=== PATIENT | female | born 1950 | race African-American/Black ===

== ENCOUNTER 2019-01-22 00:49 | Emergency (ER) | payer OTHER ==
[~2019-01-22] VITALS: Ht 162.6 cm; Wt 95.0 kg
[2019-01-22] MEDS ORDERED: ACETAMINOPHEN 325MG TABLET PO STA (04:12)
[2019-01-22 05:45] VITALS: BP 159/89
== END 2019-01-22 06:05 | disposition home or self-care (01) ==
LOC: ER 00:49
DX: L03.116 Cellulitis of left lower limb (principal)
CPT/HCPCS: 93971; 99284